=== PATIENT | male | born 1985 | race Caucasian/White ===

== ENCOUNTER 2019-03-15 16:21 | Emergency (ER) | payer OTHER ==
[2019-03-15] MEDS ORDERED: oxyCODONE 5 MG TABLET PO STA (18:45)
[2019-03-15] MEDS ORDERED: ACETAMINOPHEN 325 MG TABLET PO STA (18:45)
--- NOTE | 2019-03-15 18:47 | ED Physician Documentation ---
History of Present Illness - Stated complaint Stated Complaint: LT HIP PX - Chief complaint Chief Complaint: Ext Problem - Additonal information Additional information: This is a 34-year-old male who presents with left-sided back pain rating down his leg. Patient states he had some mild to moderate discomfort for last month or since he slept on the ground in his house. He describes it as a achy pain in his left superior gluteal region and left lateral lower back, which radiates down his leg. Today he was moving around and getting ready go to work and it got much worse. He is able to walk but he has pain with flexion of his hips. He denies any fever or redness or rash. No weakness or numbness. Review of Systems Constitutional: denies: Fever Skin: denies: Rash Musculoskeletal: reports: Back pain Neurologic: denies: Focal weakness Immunocompromised: denies: Immunocompromised PD PAST MEDICAL HISTORY - Past Medical History Past Medical History: No Neuro: Head injury, Other Other Past Medical History: cluster JERRY - Past Surgical History Past Surgical History: Yes - Present Medications Home Medications: Ambulatory Orders Medication Instructions Recorded Confirmed Lidocaine Patch 5% [Lidoderm Patch] 1 patch TOP DAILY PRN #10 patch 03/15/19 Methylprednisolone [Medrol] 4 mg PO DAILY #1 tab.ds.pk 03/15/19 methocarbamoL [Methocarbamol] 500 mg PO TID PRN #15 tablet 03/15/19 - Allergies Allergies/Adverse Reactions: Allergies Allergy/AdvReac Type Severity Reaction Status Date / Time No Known Drug Allergies Allergy Verified 03/15/19 16:29 - Social History Does the pt smoke?: Yes Smoking Status: Current every day smoker Does the pt drink ETOH?: Yes Does the pt have substance abuse?: No - Immunizations Immunizations are current?: Yes - POLST Patient has POLST: No PD ED PE NORMAL - Vitals Vital signs reviewed: Yes - General General: Alert and oriented X 3, No acute distress - HEENT HEENT: PERRL - Neck Neck: Supple, no meningeal sign - Cardiac Cardiac: RRR, No murmur - Respiratory Respiratory: Clear bilaterally - Abdomen Abdomen: Non distended - Back Back: No spinal TTP, Other (Left lower paraspinous muscle tenderness. No midline tenderness, no deformities. + cross straight leg raise test.) - Derm Derm: Warm and dry - Extremities Extremities: No deformity, No tenderness to palpate - Neuro Neuro: Alert and oriented X 3, learning analyst 2-12 intact, No motor deficit, No sensory deficit, Normal speech, Other (SILT over bilateral LE. 5/5 strength with ankle dorsiflexion, plantarflexion, knee extension and flexion, hip flexion. Normal gait.) - Psych Psych: Normal mood, Normal affect Results - Vitals Vitals: Oxygen O2 Source Room air PD MEDICAL DECISION MAKING - ED course ED course: Pt presents with atraumatic back pain that started after sleeping on the floor, his symptoms and exam are consistent with sciatica. No neurologic deficits or red flags symptoms are present today: no fever, weakness, bowel or bladder complaints, age >50, history of cancer, saddle anesthesia. He was given oxycodone and acetaminophen with some improvement in his symptoms. I discussed PCP follow up (he has this in the next week), return precautions, and prescribed methocarbamol, a medrol dose narda, and reviewed back care. Pt agrees and was discharged home. Departure - Departure Disposition: 01 Home, Self Care Clinical Impression: Sciatica Qualifiers: Laterality: left Qualified Code(s): M54.32 - Sciatica, left side Condition: Good Instructions: ED Sciatica Prescriptions: Lidocaine Patch 5% [Lidoderm Patch] 1 patch TOP DAILY PRN #10 patch PRN Reason: pain methocarbamoL [Methocarbamol] 500 mg PO TID PRN #15 tablet PRN Reason: Pain Methylprednisolone [Medrol] 4 mg PO DAILY #1 tab.ds.pk Comments: You were seen today for pain radiating down the leg, this appears to be sciatica. Try the medications prescribed, you may also use Tylenol 650 mg every 6 hours and ibuprofen 600 mg every 6 hours for pain. Avoid straining or lifting or twisting until you are feeling better. If you are having concerning symptoms such as weakness in your leg, difficulty using the bathroom, return to the emergency department. Forms: Activity restrictions Discharge Date/Time: 03/15/19 19:21
[2019-03-15 19:07] VITALS: BP 130/85
== END 2019-03-15 19:21 | disposition home or self-care (01) ==
LOC: ED 16:21
DX: M54.42 Lumbago with sciatica, left side (principal); F17.200 Nicotine dependence, unspecified, uncomplicated
CPT/HCPCS: 99283; 99284; A9270

== ENCOUNTER 2019-05-28 14:07 | Emergency (ER) | payer OTHER ==
[2019-05-28 14:13] VITALS: BP 131/88
--- NOTE | 2019-05-28 14:50 | ED Physician Documentation ---
History of Present Illness - Stated complaint Stated Complaint: LT LEG PX - Chief complaint Chief Complaint: General - Additonal information Additional information: This is a 34-year-old male is here today with a 3-month history of chronic low back pain that became worse this morning. He states this is now rating down his left leg. He has had this before and has been diagnosed with sciatica in the past. He is followed by his primary clinic and also go to physical therapy. He states he took him 2030 minutes to put his pants on this morning that is what concerned him. 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 No fevers, congestion, or further concerns at this time. Review of Systems Constitutional: denies: Fever, Fatigue GI: denies: Abdominal Pain, Nausea, Constipation, Diarrhea : denies: Dysuria, Unable to Void, Incontinent Musculoskeletal: reports: Other (See HPI). denies: Neck pain PD PAST MEDICAL HISTORY - Past Medical History Neuro: Head injury, Other - Past Surgical History Past Surgical History: Yes - Present Medications Home Medications: Ambulatory Orders Medication Instructions Recorded Confirmed Lidocaine Patch 5% [Lidoderm Patch] 1 patch TOP DAILY PRN #10 patch 03/15/19 Methylprednisolone [Medrol] 4 mg PO DAILY #1 tab.ds.pk 03/15/19 methocarbamoL [Methocarbamol] 500 mg PO TID PRN #15 tablet 03/15/19 Ibuprofen [Ibu] 800 mg PO TID #30 tablet 05/28/19 Methocarbamol [Robaxin-750] 750 mg PO TID #30 tablet 05/28/19 predniSONE [Prednisone] 40 mg PO DAILY #10 tablet 05/28/19 - Allergies Allergies/Adverse Reactions: Allergies Allergy/AdvReac Type Severity Reaction Status Date / Time No Known Drug Allergies Allergy Verified 05/28/19 14:13 - Social History Does the pt smoke?: Yes Smoking Status: Current every day smoker Does the pt drink ETOH?: Yes Does the pt have substance abuse?: No - Immunizations Immunizations are current?: Yes - POLST Patient has POLST: No PD ED PE NORMAL - Vitals Vital signs reviewed: Yes - General General: Alert and oriented X 3, Well developed/nourished, Other (Nontoxic appearing but in mild distress.) - HEENT HEENT: No: Atraumatic - Neck Neck: Supple, no meningeal sign - Cardiac Cardiac: RRR - Respiratory Respiratory: No: No respiratory distress - Back Back: Other (No vertebral step-off or midline tenderness. Strength is 4-4 in the lower extremities.) - Neuro Neuro: Alert and oriented X 3, No motor deficit, No sensory deficit, Normal speech Motor: Obeys Commands Verbal: Oriented Results - Vitals Vitals: Vital Signs - 24 hr 05/28/19 14:11 Temperature 36.9 C Heart Rate 85 Respiratory 16 Rate Blood Pressure 131/88 H O2 Saturation 98 Oxygen O2 Source Room air PD MEDICAL DECISION MAKING - ED course Complexity details: other (Will discharge patient with a prescription of Robaxin, ibuprofen, and prednisone. He is encouraged to contact his primary clinic to schedule close follow-up appointment. He is asked to obtain a referral to consider Neurologic Versus orthopedic consultation.) Departure - Departure Disposition: 01 Home, Self Care Clinical Impression: Acute low back pain with left-sided sciatica Condition: Stable Instructions: ED Back Care Tips Prescriptions: Ibuprofen [Ibu] 800 mg PO TID #30 tablet Methocarbamol [Robaxin-750] 750 mg PO TID #30 tablet predniSONE [Prednisone] 40 mg PO DAILY #10 tablet Comments: Use the provided medications as prescribed. Contact your primary clinic to schedule a follow-up appointment. Consider referral to orthopedics Or neurology. Return to emergency room as needed for any emergent changes or concerns.
== END 2019-05-28 15:23 | disposition home or self-care (01) ==
LOC: ED 14:07
DX: M54.42 Lumbago with sciatica, left side (principal); F17.200 Nicotine dependence, unspecified, uncomplicated
CPT/HCPCS: 99283; 99284

== ENCOUNTER 2020-02-15 20:55 | Emergency (ER) | payer OTHER ==
[2020-02-15] MEDS ORDERED: BUFFERED LIDOCAINE 10 ML SYRINGE SUBQ STA (21:01)
--- NOTE | 2020-02-15 21:02 | ED Physician Documentation ---
PD HPI UPPER EXT INJURY - Stated complaint Stated Complaint: RT THUMB LAC - History obtained from History obtained from: Patient - History of Present Illness Location: Right (35-year-old gentleman, active duty in the [employer] took a slice out of his right, dominant thumb with a mandolin slicer at home just prior to arrival.) Review of Systems Constitutional: reports: Reviewed and negative Cardiac: reports: Reviewed and negative Respiratory: reports: Reviewed and negative PD PAST MEDICAL HISTORY - Past Medical History Neuro: Head injury, Other - Past Surgical History Past Surgical History: Yes - Present Medications Home Medications: Ambulatory Orders Medication Instructions Recorded Confirmed Lidocaine Patch 5% [Lidoderm Patch] 1 patch TOP DAILY PRN #10 patch 03/15/19 Methylprednisolone [Medrol] 4 mg PO DAILY #1 tab.ds.pk 03/15/19 methocarbamoL [Methocarbamol] 500 mg PO TID PRN #15 tablet 03/15/19 Ibuprofen [Ibu] 800 mg PO TID #30 tablet 05/28/19 Methocarbamol [Robaxin-750] 750 mg PO TID #30 tablet 05/28/19 predniSONE [Prednisone] 40 mg PO DAILY #10 tablet 05/28/19 Bacitracin Zinc Oint 1 applic TOP BID #1 tube 02/15/20 - Allergies Allergies/Adverse Reactions: Allergies Allergy/AdvReac Type Severity Reaction Status Date / Time No Known Drug Allergies Allergy Verified 05/28/19 14:13 - Social History Does the pt smoke?: Yes Smoking Status: Current every day smoker Does the pt drink ETOH?: Yes Does the pt have substance abuse?: No - Immunizations Immunizations are current?: Yes - POLST Patient has POLST: No PD ED PE NORMAL - Vitals Vital signs reviewed: Yes - General General: Alert and oriented X 3, No acute distress - Extremities Extremities: Other (After the administration of a digital block the bandage removed, he is got a circular fingertip amputation that just skives the nail on the right thumb, radial side. Just over 1 cm) - Neuro Neuro: Alert and oriented X 3, Normal speech Results - Vitals Vitals: Vital Signs - 24 hr 02/15/20 20:58 Temperature 37.2 C Heart Rate 79 Respiratory 18 Rate Blood Pressure 133/93 H O2 Saturation 100 Oxygen O2 Source Room air Procedures - Regional nerve block Nerve block site: Digital - note digit(s) (right thumb) Right / left: Right Nerve block anesthesia: Lidocaine 1% (with bicarb) Nerve block aftercare: Excellent anesthesia PD MEDICAL DECISION MAKING - ED course ED course: Wound was irrigated and dressed with Gelfoam and tube gauze. He was counseled on wound care and the need for follow-up. It is of a size that he may need skin grafting. Departure - Departure Disposition: 01 Home, Self Care Clinical Impression: Fingertip amputation Qualifiers: Encounter type: initial encounter Qualified Code(s): S68.119A - Complete traumatic metacarpophalangeal amputation of unspecified finger, initial encounter Condition: Good Record reviewed to determine appropriate education?: Yes Instructions: ED Laceration Amputation Finger Tip Open Tx Prescriptions: Bacitracin Zinc Oint 1 applic TOP BID #1 tube Comments: Hopefully this will heal in fine on its own, but there is a possibility that if it does not you may need a skin graft. [place] and they may want to do serial wound checks to see if it is healing okay and if not may need to refer you onto a specialist for consideration for skin grafting. Keep the current dressing on until Monday. After that time you can take it off and wash it with soap and water. Then apply some of the prescription antibiotic ointment and a nonstick dressing and a wrap that is not too tight as to be painful. Return if worsening.
[2020-02-15 21:07] VITALS: BP 133/93
== END 2020-02-15 21:28 | disposition home or self-care (01) ==
LOC: ED 20:55
DX: S68.011A Complete traumatic metacarpophalangeal amputation of right thumb, initial encounter (principal); W27.4XXA Contact with kitchen utensil, initial encounter; Y93.G1 Activity, food preparation and clean up; Y92.009 Unspecified place in unspecified non-institutional (private) residence as the place of occurrence of the external cause; F17.200 Nicotine dependence, unspecified, uncomplicated
CPT/HCPCS: 99282; 99283